=== PATIENT | male | born 1950 | race Caucasian/White ===

== ENCOUNTER 2021-11-07 08:50 | Day surgery (SDC) | payer OTHER ==
[2021-11-07 09:16] LABS: MPV 7.9 fL (7.6-11.3)
[2021-11-07 09:22] LABS: Protime INR 0.91
[2021-11-07 10:08] VITALS: TEMP 97.6; O2SAT 100; BMI 23.7
--- NOTE | 2021-11-07 12:41 | RAD REPORT ---
EXAM DESCRIPTION: RAD - Lumbar Puncture For Dx - 11/07/2021 12:28 pm COMPARISON: None. TECHNIQUE: The procedure, risks and alternatives to the procedure were discussed with the patient in detail. After answering all questions, both oral and written consent were obtained. Time-out procedu re was performed. The patient was placed in an oblique prone position on the fluoroscopic table. The skin of the lower back was prepped and draped in the usual sterile fashion. After anesthetizing the skin and deeper sof t tissues with 1% lidocaine, a 22 gauge needle was advanced into the thecal sac at the L2-3 level. At the conclusion of the procedure the needle was withdrawn and a sterile bandage placed over the pun cture site. The patient tolerated the procedure well without immediate complications. Post-procedure care and precaution instructions were discussed with the patient before the LP procedure. IMPRESSION: Successful fluoroscopic guided lumbar puncture. All obtained fluid was sent to the lab f or studies requested by the referring physician.
[2021-11-07 13:01] LABS: Fluid Total Volume 14 ml
[2021-11-07 13:02] LABS: Appearance CLEAR (CLEAR); Body Fluid Source CSF; Body Fluid WBC 5 /mm^3; Color of fluid Colorless (COLORLESS)
[2021-11-07 13:10] LABS: CSF Glucose 51 mg/dL (40-70)
[2021-11-07 13:52] VITALS: BP 144/73
[2021-11-12 22:44] LABS: Albumin, (SPE) 4.6 g/dL (3.8-4.8); Alpha-1-Globulins 0.2 g/dL (0.2-0.3); Alpha-2-Globulins 0.6 g/dL (0.5-0.9); Gamma Globulins 1.1 g/dL (0.8-1.7); INTERPRETATION REPORT
== END 2021-11-07 13:55 | disposition home or self-care (01) ==
LOC: DS 08:50 → EDSTATUS 10:00 → DS 13:55
PROVIDERS: ATTEND Psychiatry & Neurology Neurology
PROC: 009U3ZX Drainage of Spinal Canal, Percutaneous Approach, Diagnostic (ICD-10-PCS; principal; 2021-11-07)
DX: G60.9 Hereditary and idiopathic neuropathy, unspecified (principal)
CPT/HCPCS: 36415; 62328; 77003; 82040; 82042; 82784; 82945; 83916; 84157; 84165; 84166; 85049; 85610; 85730; 89050

== ENCOUNTER 2025-01-23 09:04 | Emergency (ER) | payer OTHER ==
[2025-01-23 09:41] LABS: Absolute Lymphocytes (CBC) 0.6 K/uL (0.7-4.9); Absolute Monocytes 0.6 K/uL (0.1-1.3); Absolute Neutrophil 7.1 K/uL (1.8-8.0); Basophils % 0.5 % (0-1.3); Eosinophils % 0.2 % (0-4.4); Hematocrit 40.1 % (39.6-49.0); Hemoglobin 13.7 g/dL (13.6-17.9); Lymphocytes % 7.5 % (15.3-44.8); MCH 34.4 pg (27.0-35.0); MCHC 34.3 g/dL (32.0-36.0); MCV 100.5 fL (80-100); MPV 8.5 fL (7.6-11.3); Monocytes % 7.1 % (3.3-12.3); Neutrophils % 84.7 % (41.7-73.7); Nucleated Red Blood Cells % 0.1 % (0-0); Platelets 117 thou/uL (152-406); RBC Red Blood Cell Count 3.99 M/uL (4.33-5.43); Red Cell Distribution Width 15.7 % (12.1-15.2)
--- NOTE | 2025-01-23 09:44 | RAD REPORT ---
EXAM: CT CHEST, ABDOMEN AND PELVIS WITHOUT CONTRAST CLINICAL INDICATION: TRAUMA TECHNIQUE: CT chest, abdomen and pelvis was performed without contrast, as per department protocol. A xial, sagittal and coronal reconstructions were obtained. One or more of the following dose reduction techniques were used: Automated exposure control, adjustment of the mA and/or kV according to patient size, and/or iterative reconstruction. Unless otherwise specified, incidental findings do not require dedicated imaging follow-up. Examination is limited by the lack of intravenous contrast material. COMPARISON: No prior exam. FINDINGS: LUNGS: No evidence of airspace or interstitial process. No nodules. PLEURA: No pleural effusion. No pneumothorax. MEDIASTINUM AND LYMPH NODES: No mediastinal mass or fluid collection. Normal size mediastinal, hilar, and axillary lymph nodes. Multilead pacer device present. OSSEOUS STRUCTURES AND CHEST WALL: Intact. LIVER: Normal in size and contour. No focal lesion or biliary dilatation. Grossly unremarkable gallbl adder. PANCREAS: No mass, ductal dilation, or yash-pancreatic fluid. SPLEEN: Normal size. No focal lesion. ADRENALS: Normal; no mass. KIDNEYS: Normal size and contour. No hydronephrosis. URINARY BLADDER: Normal contour. GASTROINTESTINAL TRACT: No bowel obstruction, free air, significant free fluid or abscess. Moderate stool is retained throughout the colon. Sigmoid diverticulosis coli. APPENDIX: Normal appendix. LYMPH NODES: No lymphadenopathy. MUSCULOSKELETAL: Minimal fracture suspected affecting the right lateral eighth and ninth ribs versus motion artifact. IMPRESSION: Possible minimal fractures right lateral eighth and ninth rib versus motion artifact, suggest correla tion with clinical point tenderness in this region. Elsewhere, no acute trauma-related abnormality seen. Colonic diverticulosis is present without significant stool retention.
--- NOTE | 2025-01-23 09:46 | RAD REPORT ---
EXAM: CT brain without contrast HISTORY: TRAUMA COMPARISON: None TECHNIQUE: Multiple contiguous axial images were obtained and a CT of the brain without contrast. Sag ittal and coronal reformats were performed. One or more of the following dose reduction techniques were used: Automated exposure control, adjust ment of the mA and/or kV according to patient size, and/or iterative reconstruction. FINDINGS: No evidence of hydrocephalus, intracranial hemorrhage, or extra-axial fluid collection. The brain is normal in morphology. No evidence of midline shift or areas of brain edema. The calvarium is intact. The visualized paranasal sinuses and mastoid air cells are essentially clear . Right sided facial soft tissue swelling. EXAM: CT of the cervical spine without contrast HISTORY: Neck pain, injury TRAUMA TECHNIQUE: Multiple contiguous axial images were obtained in a CT of the cervical spine without contr ast. Sagittal and coronal reformats were performed. FINDINGS: The vertebral bodies demonstrate normal height and alignment. No evidence of acute fracture or subluxation.. Moderate lower cervical spondylosis. No prevertebral soft tissue swelling is seen. The posterior facets are well aligned. Normal alignment of the skull base with the cervical spine is seen. The lung apices are unremarkable. COMBINED IMPRESSION: No evidence of acute intracranial abnormality. No evidence of acute osseous abnormality of the cervical spine.
[2025-01-23 09:47] LABS: PT Prothrombin Time 10.4 SECONDS (10-13.0); Protime INR 0.91
--- NOTE | 2025-01-23 09:49 | RAD REPORT ---
EXAMINATION: ONE VIEW CHEST XR CLINICAL INDICATION: PAIN TECHNIQUE: Frontal chest projection is submitted. Examination is limited by patient positioning and t echnique. COMPARISON: 02/05/2024 FINDINGS: The lungs are well inflated and clear. The heart is mildly enlarged in size. No displaced fractures i dentified. Dual lead pacer device present. IMPRESSION: No acute intrathoracic abnormalities.
--- NOTE | 2025-01-23 09:49 | RAD REPORT ---
EXAMINATION: CT MAXILLOFACIAL WITHOUT CONTRAST CLINICAL INDICATION: PAIN TECHNIQUE: Axial images were obtained through the facial bones and orbits without intravenous contras t. Sagittal and coronal reconstructions were created from the data. One or more of the following dose reduction techniques were used: Automated exposure control, adjustment of the mA and/or kV accor ding to patient size, and/or iterative reconstruction. Unless otherwise specified, incidental findings do not require dedicated imaging follow-up. COMPARISON: No prior exam. FINDINGS: SOFT TISSUE: Moderate soft tissue swelling/focal hematoma anterior to the right zygoma. BONES: Minimally displaced right nasal bone fracture. No additional facial bone fracture observed. ORBITS: The globes are intact. No intraorbital hemorrhage or mass. SINUSES: The visualized paranasal sinuses and mastoid air cells are essentially clear. IMPRESSION: Minimal right-sided nasal bone fracture.
[2025-01-23] MEDS ORDERED: TDAP (DIPHTH,PERTUSS(ACELL),TET VAC) 0.5 ML VIAL IMVAC ONE (09:58)
[2025-01-23] MEDS ORDERED: NEOMYCIN/BAC/POLY OPTH 3.5GM ONE (09:58)
[2025-01-23] MEDS ORDERED: CEFAZOLIN SODIUM 2 GM/VIAL ONE (09:59)
[2025-01-23] MEDS ORDERED: NA CHLORIDE 0.9% 1,000 ML ONE (09:59)
[2025-01-23] MEDS ORDERED: NA CHLORIDE 0.9% 100 ML ONE (09:59)
--- NOTE | 2025-01-23 10:24 | ER ---
Nurse's Notes [facility] Name: Ethan Reveles Age: 74 yrs Sex: Male : 1950 Arrival Date: 01/23/2025 Time: 09:04 Bed 4 Private MD: Diagnosis: Fall on same level, unspecified;Facial Laceration/ Laceration without foreign body of cheek and temporomandibular area;Contusion of nose;Fracture of nasal bones;Multiple fractures of ribs, right side;Presence of cardiac pacemaker Presentation: 01/23 09:07 Chief complaint: EMS states: Tripped over a large ant bed, landed on concrete striking ph R side of face +LOC, takes baby aspirin, significant bruising and swelling to R side of forehead and R cheek. Coronavirus screen: Vaccine status: Patient reports receiving the 1st dose of the Covid vaccine. Ebola Screen: No symptoms or risks identified at this time. 09:07 Method Of Arrival: EMS: [facility] 09:10 Initial Sepsis Screen: Does the patient meet any 2 criteria? No. Patient's initial sepsis screen is negative. Does the patient have a suspected source of infection? No. Patient's initial sepsis screen is negative. Risk Assessment: Do you want to hurt yourself or someone else? Patient reports no desire to harm self or others. Onset of symptoms was January 23, 2025. 09:10 Acuity: JIM 2 ph 09:14 Care prior to arrival: IV initiated. 20 GA, in the left forearm. Mechanism of Injury: ph Fall from standing position. Trauma event details: Injury occurred in the [facility] [place], Injury occurred: at home. Injury occurred: January 23, 2025. Trauma Activation: Not Applicable Physician: ED Physician; Name: ; Notified At: ; Arrived At: Physician: General Surgeon; Name: ; Notified At: ; Arrived At: Physician: Radiology; Name: ; Notified At: ; Arrived At: Physician: Respiratory; Name: ; Notified At: ; Arrived At: Physician: Lab; Name: ; Notified At: ; Arrived At: Historical: - Allergies: 09:09 PENICILLINS; ph - PMHx: 09:09 Atrial fibrillation; Hansens Disease; ph - PSHx: 09:09 pacemaker; watchman; - Immunization history:: Adult Immunizations unknown. - Infectious Disease History:: states that he is currently being tx for leprosy . - Immunization history: Last tetanus immunization: unknown. - Family history:: not pertinent. - Social history:: Smoking status: Patient denies any tobacco usage or history of. Screenin:13 [facility] ED Fall Risk Assessment (Adult) History of falling in the last 3 months, ph including since admission Yes- single mechanical fall (1 pt) Confusion or Disorientation No (0 pts) Intoxicated or Sedated No (0 pts) Impaired Gait No (0 pts) Mobility Assist Device Used No (0 pt) Altered Elimination No (0 pt) Score/Fall Risk Level 0 - 2 = Low Risk Oriented to surroundings, Maintained a safe environment, Hourly rounding (assess needs \T\ fall precautionary measures) done. Abuse screen: Denies threats or abuse. Denies injuries from another. Nutritional screening: No deficits noted. Tuberculosis screening: No symptoms or risk factors identified. Primary Survey: 09:12 NO uncontrolled hemorrhage observed. A: The client is awake and alert. The airway is ph patent. Breathing/Chest: Spontaneous respiratory effort, equal unlabored respirations, breath sounds clear bilaterally, regular pattern, symmetrical chest rise and fall. Circulation: No external hemorrhage present. Regular and strong central pulse, skin warm/dry/normal color. Disability Pupils are equal, round, reactive to light and accommodation. Client is alert. Exposure/Environment: There is no evidence of uncontrolled external bleeding. Obvious injury(ies) are noted at this time: swelling and abrasions to R cheek and R side of forehead A warming method has been applied: A warm blanket has been provided to the patient. 10:51 Reassessment Alertness and Airway: Awake and alert. The airway is patent. Breathing: ph Spontaneous respiratory effort, equal unlabored respirations, breath sounds clear bilaterally, regular pattern with symmetrical chest rise and fall. Circulation: No external hemorrhage noted. Regular and strong central pulse, skin warm/dry/normal color. Disability: Pupils Pupils are equal, round, reactive to light and accomodation. Assessment: 09:11 General: Appears in no apparent distress. slender, well groomed, Behavior is calm, ph cooperative. Pain: Complains of pain in right side of forehead and right zygomatic area. Neuro: Level of Consciousness is awake, alert, obeys commands, Oriented to person, place, time, situation. Cardiovascular: Capillary refill < 3 seconds in bilateral fingers Patient's skin is warm and dry. Respiratory: Airway is patent Respiratory effort is even, unlabored. Musculoskeletal: Circulation, motion, and sensation intact. Injury Description: Abrasion sustained to right side of forehead and right zygomatic area Head injury. Vital Signs: 09:07 BP 138 / 79; Pulse 62; Resp 18; Temp 97.8; Pulse Ox 97% on R/A; Weight 86.18 kg; Height ph 6 ft. 0 in. ; 10:30 BP 119 / 75; Pulse 61; Resp 18; Temp 97.8; Pulse Ox 98% on R/A; ph 11:30 BP 131 / 78; Pulse 64; Resp 18; Temp 97.8; Pulse Ox 99% on R/A; ph 09:07 Body Mass Index 25.77 (86.18 kg, 182.88 cm) ph Adriana Coma Score: 09:13 Eye Response: spontaneous(4). Motor Response: obeys commands(6). Verbal Response: ph oriented(5). Total: 15. 10:30 Eye Response: spontaneous(4). Motor Response: obeys commands(6). Verbal Response: ph oriented(5). Total: 15. 11:30 Eye Response: spontaneous(4). Motor Response: obeys commands(6). Verbal Response: ph oriented(5). Total: 15. Trauma Score (Adult): 09:13 Eye Response: spontaneous(1); Verbal Response: oriented(1); Motor Response: obeys ph commands(2); Systolic BP: > 89 mm Hg(4); Respiratory Rate: 10 to 29 per min(4); Windom Score: 15; Trauma Score: 12 10:30 Eye Response: spontaneous(1); Verbal Response: oriented(1); Motor Response: obeys ph commands(2); Systolic BP: > 89 mm Hg(4); Respiratory Rate: 10 to 29 per min(4); Adriana Score: 15; Trauma Score: 12 11:30 Eye Response: spontaneous(1); Verbal Response: oriented(1); Motor Response: obeys ph commands(2); Systolic BP: > 89 mm Hg(4); Respiratory Rate: 10 to 29 per min(4); Windom Score: 15; Trauma Score: 12 ED Course: 09:04 Patient arrived in ED. bd 09:05 Humphrey Farley MD is Attending Physician. marshal 09:07 Olamide Kuo, RN is Primary Nurse. ph 09:10 Triage completed. ph 09:14 Patient maintains SpO2 saturation greater than 95% on room air. Thermoregulation: warm ph blanket given to patient. 09:14 Arm band placed on. ph 09:15 Patient has correct armband on for positive identification. Bed in low position. Call ph light in reach. Side rails up X2. Pulse ox on. NIBP on. Door closed. Noise minimized. Warm blanket given. 09:19 CT Facial Bones W/O Con In Process Unspecified. EDMS 09:20 Head C Spine Mpr Wo Con In Process Unspecified. EDMS 09:20 Chest Abd Pelvis Wo Con In Process Unspecified. EDMS 09:37 Initial lab(s) drawn, by me, sent to lab. EKG done, by ED staff, reviewed by Humphrey Farley MD. Maintain EMS IV. Dressing intact. Good blood return noted. Site clean \T\ dry. Gauge \T\ site: 20 RFA. Flushed with 10 mL NS. 09:41 XRAY Chest (1 view) In Process Unspecified. EDMS 10:23 Barbara Ruiz MD is Referral Physician. marshal 10:50 No provider procedures requiring assistance completed. Wound care: to abrasion, located ph on right hand and right elbow was cleaned with Hibiclens, irrigated with normal saline, dressed with Neosporin, band aid. Wound care: to abrasion, located on right side of forehead, right zygomatic area and right side of the nose was cleaned with Hibiclens, irrigated with normal saline, dressed with Neosporin, band aid. 11:51 IV discontinued, intact, bleeding controlled, No redness/swelling at site. Pressure ph dressing applied. 11:53 INCENTIVE SPIROMETRY Sent. ph Administered Medications: 10:15 Drug: NS 0.9% IV 1000 ml IV at 1000 ml once; to be given as a bolus over 60 minutes ph Route: IV; Rate: 1000 ml; Site: left forearm; 11:54 Follow up: Response: No adverse reaction; IV Status: Completed infusion; IV Intake: ph 1000ml 10:15 Drug: ceFAZolin IVPB 2 grams IVPB once over 30 mins; (mix in 100 mL NS) Route: IVPB; ph Infused Over: 30 mins; Site: left forearm; 10:51 Follow up: Response: No adverse reaction; IV Status: Completed infusion ph 10:47 Drug: Kpnwhwjd-Nwarkuspzl-Yxoblocuc Topical Ointment 1 application Topical once Route: ph Topical; Site: affected area; 10:51 Follow up: Response: No adverse reaction ph 10:48 Drug: Boostrix Tdap IM 0.5 ml IM once; as a single dose Route: IM; Site: right deltoid; ph 10:51 Follow up: Response: No adverse reaction ph Medication: 10:49 Vaccine Information Statement (VIS) provided today. Questions and/or concerns ph addressed. VIS edition date: April 2021. Intake: 11:52 IV: 1100ml; Total: 1100ml. ph 11:54 IV: 1000ml; Total: 2100ml. ph Output: 11:52 Urine: 0ml; Total: 0ml. ph Outcome: 10:23 Discharge ordered by . marshal 11:51 Discharged to home via wheelchair, with significant other, ph 11:51 Condition: good 11:51 Discharge instructions given to patient, Instructed on discharge instructions, follow up and referral plans. medication usage, Demonstrated understanding of instructions, follow-up care, medications, Prescriptions given X 3, 11:54 Patient left the ED. ph Signatures: Dispatcher [employer] EDMS Sakina López Corey, MD MD cha Hall, Patricia, RN RN ph
--- NOTE | 2025-01-23 10:24 | EDPHYS ---
Physician Documentation [facility] Name: Ethan Reveles Age: 74 yrs Sex: Male : 1950 Arrival Date: 01/23/2025 Time: 09:04 Bed 4 Private MD: ED Physician Humphrey Farley HPI: 01/23 10:17 This 74 yrs old Male presents to ER via EMS with complaints of Fall Injury. marshal 10:17 Details of fall: The patient fell from an upright position, while standing, while marshal walking. Onset: The symptoms/episode began/occurred just prior to arrival. Associated injuries: The patient sustained injury to the head, nose, abrasion, contusion, hematoma, obvious fracture, painful injury, swelling. Severity of symptoms: At their worst the symptoms were mild, in the emergency department the symptoms are unchanged. Historical: - Allergies: 09:09 PENICILLINS; ph - PMHx: 09:09 Atrial fibrillation; Hansens Disease; ph - PSHx: 09:09 pacemaker; watchman; ph - Immunization history:: Adult Immunizations unknown. - Infectious Disease History:: states that he is currently being tx for leprosy . - Immunization history: Last tetanus immunization: unknown. - Family history:: not pertinent. - Social history:: Smoking status: Patient denies any tobacco usage or history of. ROS: 10:17 Constitutional: Negative for fever, chills, and weight loss, Eyes: Negative for injury, marshal pain, redness, and discharge, Neck: Negative for injury, pain, and swelling, Cardiovascular: Negative for chest pain, palpitations, and edema, Respiratory: Negative for shortness of breath, cough, wheezing, and pleuritic chest pain, Abdomen/GI: Negative for abdominal pain, nausea, vomiting, diarrhea, and constipation, Back: Negative for injury and pain, : Negative for injury, bleeding, discharge, and swelling, MS/Extremity: Negative for injury and deformity, Skin: Negative for injury, rash, and discoloration, Neuro: Negative for headache, weakness, numbness, tingling, and seizure, Psych: Negative for depression, anxiety, suicide ideation, homicidal ideation, and hallucinations, Allergy/Immunology: Negative for hives, rash, and allergies, Endocrine: Negative for neck swelling, polydipsia, polyuria, polyphagia, and marked weight changes, 10:17 ENT: Positive for nasal discharge, nose bleed, rhinorrhea, Exam: 10:17 Constitutional: This is a well developed, well nourished patient who is awake, alert, marshal and in no acute distress. Eyes: Pupils equal round and reactive to light, extra-ocular motions intact. Lids and lashes normal. Conjunctiva and sclera are non-icteric and not injected. Cornea within normal limits. Periorbital areas with no swelling, redness, or edema. Neck: Trachea midline, no thyromegaly or masses palpated, and no cervical lymphadenopathy. Supple, full range of motion without nuchal rigidity, or vertebral point tenderness. No Meningismus. Chest/axilla: Normal chest wall appearance and motion. Nontender with no deformity. No lesions are appreciated. Cardiovascular: Regular rate and rhythm with a normal S1 and S2. No gallops, murmurs, or rubs. Normal PMI, no JVD. No pulse deficits. Respiratory: Lungs have equal breath sounds bilaterally, clear to auscultation and percussion. No rales, rhonchi or wheezes noted. No increased work of breathing, no retractions or nasal flaring. Abdomen/GI: Soft, non-tender, with normal bowel sounds. No distension or tympany. No guarding or rebound. No evidence of tenderness throughout. Back: No spinal tenderness. No costovertebral tenderness. Full range of motion. Male : Normal genitalia with no discharge or lesions. Skin: Warm, dry with normal turgor. Normal color with no rashes, no lesions, and no evidence of cellulitis. MS/ Extremity: Pulses equal, no cyanosis. Neurovascular intact. Full, normal range of motion., bilateral aka Neuro: Awake and alert, GCS 15, oriented to person, place, time, and situation. Cranial nerves II-XII grossly intact. Motor strength 5/5 in all extremities. Sensory grossly intact. Cerebellar exam normal. Normal gait. Psych: Awake, alert, with orientation to person, place and time. Behavior, mood, and affect are within normal limits. 10:17 Head/face: Noted is contusion, ecchymosis, hematoma, a laceration(s), swelling, that is moderate, of the forehead, nose, mouth and chin, Vital Signs: 09:07 BP 138 / 79; Pulse 62; Resp 18; Temp 97.8; Pulse Ox 97% on R/A; Weight 86.18 kg; Height ph 6 ft. 0 in. ; 10:30 BP 119 / 75; Pulse 61; Resp 18; Temp 97.8; Pulse Ox 98% on R/A; ph 11:30 BP 131 / 78; Pulse 64; Resp 18; Temp 97.8; Pulse Ox 99% on R/A; ph 09:07 Body Mass Index 25.77 (86.18 kg, 182.88 cm) ph [place] Coma Score: 09:13 Eye Response: spontaneous(4). Motor Response: obeys commands(6). Verbal Response: ph oriented(5). Total: 15. 10:30 Eye Response: spontaneous(4). Motor Response: obeys commands(6). Verbal Response: ph oriented(5). Total: 15. 11:30 Eye Response: spontaneous(4). Motor Response: obeys commands(6). Verbal Response: ph oriented(5). Total: 15. Trauma Score (Adult): 09:13 Eye Response: spontaneous(1); Verbal Response: oriented(1); Motor Response: obeys ph commands(2); Systolic BP: > 89 mm Hg(4); Respiratory Rate: 10 to 29 per min(4); Adriana Score: 15; Trauma Score: 12 10:30 Eye Response: spontaneous(1); Verbal Response: oriented(1); Motor Response: obeys ph commands(2); Systolic BP: > 89 mm Hg(4); Respiratory Rate: 10 to 29 per min(4); [place] Score: 15; Trauma Score: 12 11:30 Eye Response: spontaneous(1); Verbal Response: oriented(1); Motor Response: obeys ph commands(2); Systolic BP: > 89 mm Hg(4); Respiratory Rate: 10 to 29 per min(4); Adriana Score: 15; Trauma Score: 12 MDM: 09:05 Medical Screening Exam initiated marshal 10:21 Differential diagnosis: abrasion, closed head injury, contusion, fracture, laceration, marshal multiple trauma, sprain, strain. Data reviewed: vital signs, nurses notes, lab test result(s), EKG, radiologic studies. Consideration of Admission/Observation Escalation of care including admission/observation considered. I considered the following discharge prescriptions or medication management in the emergency department Medications were administered in the Emergency Department. See MAR. Independent interpretation of the following test(s) in the Emergency Department EKG: See my EKG interpretation above. Test considered but Not performed: Ultrasound NO 2 D ECHO. Care significantly affected by the following chronic conditions: Hypertension, A FIB, HANSENS. 01/23 09:06 Order name: Basic Metabolic Panel; Complete Time: 11:11 [facility] 01/23 09:06 Order name: CBC with Diff; Complete Time: 10:13 [facility] 01/23 09:06 Order name: LFT's; Complete Time: 11:11 [facility] 01/23 09:06 Order name: Magnesium; Complete Time: 11:11 [facility] 01/23 09:06 Order name: NT PRO-BNP; Complete Time: 11:11 [facility] 01/23 09:06 Order name: PT-INR; Complete Time: 10:13 [facility] 01/23 09:06 Order name: Troponin HS; Complete Time: 11:11 [facility] 01/23 09:06 Order name: XRAY Chest (1 view); Complete Time: 10:13 [facility] 01/23 09:06 Order name: CT Facial Bones W/O Con; Complete Time: 10:13 [facility] 01/23 09:11 Order name: Head C Spine Mpr Wo Con; Complete Time: 10:13 [facility] 01/23 09:12 Order name: Chest Abd Pelvis Wo Con; Complete Time: 10:13 [facility] 06 10:14 Order name: INCENTIVE SPIROMETRY 01/23 09:06 Order name: EKG; Complete Time: 09:07 [facility] 01/23 09:06 Order name: Cardiac monitoring; Complete Time: 09:36 [facility] 01/23 09:06 Order name: EKG - Nurse/Tech; Complete Time: 09:36 [facility] 01/23 09:06 Order name: IV Saline Lock; Complete Time: 09:17 [facility] 01/23 09:06 Order name: Labs collected and sent; Complete Time: 09:36 [facility] 01/23 09:06 Order name: O2 Per Protocol; Complete Time: 09:17 [facility] 01/23 09:06 Order name: O2 Sat Monitoring; Complete Time: 09:17 [facility] 01/23 09:06 Order name: Ice pack; Complete Time: 10:47 [facility] 01/23 09:06 Order name: Wound Care; Complete Time: 10:47 [facility] 01/23 10:06 Order name: Labs - recollect needed: recollect green top; Complete Time: 10:47 bd Administered Medications: 10:15 Drug: NS 0.9% IV 1000 ml IV at 1000 ml once; to be given as a bolus over 60 minutes ph Route: IV; Rate: 1000 ml; Site: left forearm; 11:54 Follow up: Response: No adverse reaction; IV Status: Completed infusion; IV Intake: ph 1000ml 10:15 Drug: ceFAZolin IVPB 2 grams IVPB once over 30 mins; (mix in 100 mL NS) Route: IVPB; ph Infused Over: 30 mins; Site: left forearm; 10:51 Follow up: Response: No adverse reaction; IV Status: Completed infusion ph 10:47 Drug: Ijgwacku-[id number]-Ndgacygjj Topical Ointment 1 application Topical once Route: ph Topical; Site: affected area; 10:51 Follow up: Response: No adverse reaction ph 10:48 Drug: Boostrix Tdap IM 0.5 ml IM once; as a single dose Route: IM; Site: right deltoid; ph 10:51 Follow up: Response: No adverse reaction ph Disposition Summary: 01/23/25 10:23 Discharge Ordered Notes: Location: Home marshal Problem: new marshal Symptoms: have improved marshal Condition: Stable marshal Diagnosis - Fall on same level, unspecified marshal - Facial Laceration/ Laceration without foreign body of cheek and temporomandibular marshal area - Contusion of nose marshal - Fracture of nasal bones marshal - Multiple fractures of ribs, right side marshal - Presence of cardiac pacemaker marshal Followup: marshal - With: Private Physician - When: 2 - 3 days - Reason: Recheck today's complaints, Continuance of care, Re-evaluation by your physician Followup: marshal - With: Barbara Ruiz MD - When: 2 - 3 days - Reason: Recheck today's complaints, Re-evaluation by your physician Discharge Instructions: - Discharge Summary Sheet marshal - Fall Prevention in the Home, Adult marshal - Nasal Fracture marshal - Rib Fracture marshal - RICE Therapy for Routine Care of Injuries marshal - RICE Therapy for Routine Care of Injuries, [id number] marshal - How to Use an Incentive Spirometer marshal - Nasal Fracture, [id number] marshal - Rib Fracture, [id number] marshal Forms: - Medication Reconciliation Form marshal - Antibiotic Education marshal - Prescription Opioid Use marshal - Patient Portal Instructions [facility] - Leadership Thank You Letter [facility] Prescriptions: - Centany 2 % Topical ointment - apply 1 application TOPICAL route 3 times per day; 15 gram tube; Refills: 0, [facility] Product Selection Permitted - Cephalexin 500 mg Oral capsule - take 1 capsule ORAL route every 6 hours for 7 days; 28 capsule; Refills: 0, [facility] Product Selection Permitted - Motrin IB 200 mg Oral Tablet - take 1 tablet ORAL route every 6 hours As needed as needed with food; 40 [facility] tablet; Refills: 0, Product Selection Permitted Signatures: Dispatcher [employer] EDSakina Salter Corey, MD MD cha Hall, Patricia RN RN ph Corrections: (The following items were deleted from the chart) 09:09 09:07 Head C Spine Cap Wo Con+[id number].[id number] ordered. EDMS EDMS
[2025-01-23 10:54] LABS: ALT/SGPT 32 U/L (16-61); AST/SGOT 25 U/L (15-37); Albumin 3.2 g/dL (3.4-5.0); Alkaline Phosphatase 54 U/L (45-117); Anion Gap 7.2 mEq/L (5.0-15.0); BUN Blood Urea Nitrogen 28 mg/dL (7-18); Bicarbonate 28 mEq/L (21-32); Bilirubin Total 0.4 mg/dL (0.2-1.0); Globulin 3.1 g/dL (2.3-3.5); Glomerular Filtration Rate 64 ml/min (=/>90); Glucose Level 94 mg/dL (74-106); Magnesium 2.2 mg/dL (1.6-2.4); NT PRO-BNP 405 pg/mL (<125); Potassium 4.2 mEq/L (3.5-5.1); Protein, Total 6.3 g/dL (6.4-8.2); Sodium Level 139 mEq/L (136-145); Troponin High Sensitivity 4.9 pg/mL (<58.9)
[2025-01-23 10:55] LABS: Bilirubin Direct < 0.2 mg/dL (0-0.2); Bilirubin Indirect, Calculated 0.2 mg/dL (0.2-0.8)
[2025-01-23 14:55] VITALS: TEMP 97.8
[2025-01-23 14:58] VITALS: BP 131/78; O2SAT 99
--- NOTE | 2025-01-25 11:50 | EKG ---
Test Date: 2025-01-23 Test Time: 09:33:44 Notching Press Operator: MYRANDA MEASUREMENT RESULTS: Intervals: Rate: 61 WI: 150 QRSD: 74 QT: 374 QTc: 376 [place]: P: 3 WI: 150 QRS: 80 T: 78 INTERPRETIVE STATEMENTS: Atrial-paced rhythm Abnormal ECG Compared to ECG 02/05/2024 12:45:05 No significant changes Electronically Signed On 01-25-25 11:44:12 CDT by Gamal Herrera
== END 2025-01-23 11:54 | disposition home or self-care (01) ==
LOC: ER 09:04
DX: S02.2XXA Fracture of nasal bones, initial encounter for closed fracture (principal); S22.41XA Multiple fractures of ribs, right side, initial encounter for closed fracture; S01.411A Laceration without foreign body of right cheek and temporomandibular area, initial encounter; W18.30XA Fall on same level, unspecified, initial encounter; Z95.0 Presence of cardiac pacemaker; Z23 Encounter for immunization
CPT/HCPCS: 96365; 96361; 93005; 85025; 80048; 36415; 83735; 85610; 80076; 84484; 83880; 70450; 71250; 72125; 70486; 76377; 74176; 71045; 90715; 96372; 99285; J7030